=== PATIENT | male | born 1945 | race Caucasian/White ===

== ENCOUNTER 2020-03-31 08:27 | Day surgery (SDC) | payer MEDICARE ==
[2020-03-24 10:58] LABS: BASOPHILS % (AUTO) 0.9 % (0-1); EOSINOPHILS % (AUTO) 0.8 % (0-6); LYMPHOCYTES # (AUTO) 1.4 X10'3 (1.1-4.8); LYMPHOCYTES % (AUTO) 29.7 % (21-51); MEAN CORPUSCULAR HEMOGLOBIN 31.9 PG (27.0-31.0); MEAN CORPUSCULAR HGB CONC 33.9 g/dL (33.0-36.5); MEAN CORPUSCULAR VOLUME 94.2 FL (78-98); MEAN PLATELET VOLUME 7.4 FL (7.4-10.4); MONOCYTES # (AUTO) 0.4 X10'3 (0-0.9); MONOCYTES % (AUTO) 7.5 % (2-12); NEUTROPHILS # (AUTO) 2.9 X10'3 (1.8-7.7); NEUTROPHILS % (AUTO) 61.1 % (42-75); PRE OP HEMATOCRIT 39.9 % (42.0-52.0); PRE OP HEMOGLOBIN 13.5 g/dL (14.0-17.9); PRE OP PLATELET COUNT 206 X10'3 (140-440); RED BLOOD COUNT 4.24 X10'6 (4.70-6.10); RED CELL DISTRIBUTION WIDTH 13.4 % (11.5-14.5)
[2020-03-24 11:13] LABS: ALBUMIN 3.8 G/DL (3.4-5.0); ALKALINE PHOSPHATASE 64 IU/L (46-116); BLOOD UREA NITROGEN 16 MG/DL (7-18); BUN/CREATININE RATIO 17.8 (5.4-32.0); CALCIUM 8.7 MG/DL (8.5-10.1); CHLORIDE 106 MMOL/L (99-107); PRE OP ALT 19 U/L (30-65); PRE OP ANION GAP 7 (8-16); PRE OP AST 17 U/L (10-37); PRE OP BILIRUB, TOTAL 0.7 MG/DL (0.0-1.0); PRE OP GLUCOSE 87 MG/DL (70-104); PRE OP POTASSIUM 4.3 MMOL/L (3.4-5.1); PRE OP SODIUM 143 MMOL/L (135-145); TOTAL CARBON DIOXIDE 29.7 MMOL/L (24-32); TOTAL PROTEIN 7.7 G/DL (6.4-8.2); eGFR 82 ML/MIN
[2020-03-24 11:16] LABS: CLARITY,URINE CLEAR (Clear); COLOR,URINE YELLOW (Yellow); GLUCOSE, URINE NEGATIVE (Neg); KETONES,URINE 15 mg/dl (Neg); LEUKOCYTE ESTERASE ,URINE NEGATIVE (Neg); NITRITES, URINE NEGATIVE (Neg); OCCULT BLOOD,URINE TRACE-INTACT (Neg); PROTEIN,URINE NEGATIVE (Neg); UROBILINOGEN,URINE 0.2 E.U/dL (0.2-1.0)
[2020-03-24 11:22] LABS: UA COLLECTION TYPE CLN CATCH MIDSTREAM
[2020-03-24 11:24] LABS: BACTERIA,URINE FEW /HPF (Neg); MUCUS STRANDS MODERATE /LPF (Neg); SQUAMOUS EPITHELIAL CELL,UR FEW /LPF (FEW); WBC,URINE 0-4 /HPF (0-4)
[2020-03-31] VITALS (12 sets, daily range): BP systolic 110–133; BP diastolic 68–86
[~2020-03-31] VITALS: Ht 188 cm; Wt 92.4 kg
[~2020-03-31 08:27] MED LIST: ACET-1025 PO; BUPIVAcaine/PF 2.5 mg/ml (0.25%) 30ml vial ONE; CARV25TA56 PO; DILT-35 PO; DOCUMENT DATE & TIME OF BETA-BLOCKER PO ONE; FINA5TAB11 PO; GABA-530 PO; WARF-55 PO; ceFAZolin 2gm in dextrose, iso 50 ML IV ONE; famotidine 20mg tablet PO ONE; ringers solution, lacted 1,000 ML IV SCH
[2020-03-31] MEDS ORDERED: proCHLORperazine 10 MG/2 ml inj IV PRN (09:45)
[2020-03-31] MEDS ORDERED: ondansetron/PF 4mg/2ml inj IV PRN (09:45)
[2020-03-31] MEDS ORDERED: morphine 4 MG/ML inj SYRINge IV PRN (09:45)
[2020-03-31] MEDS ORDERED: morphine 2 MG/ML inj. syringe IV PRN (09:45)
[2020-03-31] MEDS ORDERED: ringers solution, lacted 1,000 ML IV SCH (09:45)
[2020-03-31] MEDS ORDERED: meperidine/PF 25mg/ml syringe IV PRN ×3 (09:45)
[2020-03-31 10:01] LABS: PRE OP PROTIME 14.8 SECONDS (9.0-12.0)
[2020-03-31 10:08] LABS: PRE OP INR 1.5 INR
[2020-03-31] MEDS ORDERED: sevoflurane 250ml liquid IH ONE (12:22)
[2020-03-31] MEDS ORDERED: dexamethasone sod phosphate 10mg/ml inj ONE (12:22)
[2020-03-31] MEDS ORDERED: neostigmine methylsulfate 1 MG/ML 10ml vial ONE (12:22)
[2020-03-31] MEDS ORDERED: glycopyrrolate 0.2mg/ml inj ONE (12:22)
[2020-03-31] MEDS ORDERED: midazolam 2 mg/2 ml injection ONE (12:30)
[2020-03-31] MEDS ORDERED: fentaNYL /PF 50mcg/ml 5ml ampule ONE (12:30)
[2020-03-31] MEDS ORDERED: propofol inj 20 ML IV ONE (12:31)
[2020-03-31] MEDS ORDERED: LIDOcaine 2% (20mg/ml) 5ml vial ONE (12:31)
[2020-03-31] MEDS ORDERED: rocuronium 10mg/ml inj IV ONE (12:35)
[2020-03-31] MEDS ORDERED: ondansetron/PF 4mg/2ml inj ONE (12:54)
[2020-03-31] MEDS ORDERED: acetaminophen 1,000mg/100ml IV 100 ML IV ONE (14:15)
--- NOTE | 2020-03-31 14:40 | NUR ---
ADMITTED TO PACU FROM OR ACCOMPANIED BY ANESTHESIA. INITIAL PHYSICAL ASSESSMENT DONE AND RECORDED. REPORT RECEIVED FROM ANESTHESIA.
--- NOTE | 2020-03-31 16:30 | NUR ---
DISCHARGE CRITERIA MET, DISCHARGE INSTRUCTIONS GIVEN, DEMONSTRATES VERBAL UNDERSTANDING. DISCHARGED HOME IN GOOD CONDITION.
== END 2020-03-31 16:30 | disposition home or self-care (01) ==
LOC: PAS 08:27 → EDBD 11:30 → PAS 16:30
PROVIDERS: ATTEND Surgery
DX: K40.20 Bilateral inguinal hernia, without obstruction or gangrene, not specified as recurrent (principal); D17.6 Benign lipomatous neoplasm of spermatic cord; G47.30 Sleep apnea, unspecified; I48.91 Unspecified atrial fibrillation; I44.7 Left bundle-branch block, unspecified; Z79.899 Other long term (current) drug therapy; Z20.828 Contact with and (suspected) exposure to other viral communicable diseases; Z98.890 Other specified postprocedural states; Z87.891 Personal history of nicotine dependence; G89.29 Other chronic pain; G62.9 Polyneuropathy, unspecified
CPT/HCPCS: 36415; 49650; 80053; 81001; 82948; 85025; 85610; 85730; 87635; 93005; C1758; C1781; J0131; J1100; J2001; J2250; J2405; J2704; J2710; J3010; J3490; A4215; A4618; J7120